=== PATIENT | male | born 1945 | race Caucasian/White ===

== ENCOUNTER 2017-03-04 17:43 | Inpatient (IN) | payer MEDICARE, OTHER ==
[~2017-03-04] VITALS: Ht 167.6 cm; Wt 61.6 kg
--- NOTE | 2017-03-04 17:51 | ERA ---
ER Documentation Chief Complaint Date/Time DATE: 03/04/17 TIME: 17:50 Chief Complaint HPI Very pleasant 71-year-old gentleman history of hypertension and diabetes who has not been taking his medications for greater than 1 month who presents with right-sided facial droop and weakness since about 5:30 AM, 12 hours prior to arrival. The patient states that he was home alone his was out of town and when she returned she noticed that he did not look his usual. He also describes some mild ataxia with walking. He denies any fevers chills chest pain or shortness of breath, no falls or injury. He denies anticoagulant medication. ROS All systems reviewed and are negative except as per history of present illness. Medications Home Meds Reported Medications Metformin* (Glucophage*) 500 Mg Tab, 500 MG PO BID, #90 TAB 03/04/17 Allergies Allergies: Coded Allergies: No Known Allergy (Unverified , 03/04/17) FmHx Family History: diabetes Physical Exam Vitals Vital Signs Date Time Temp Pulse Resp B/P Pulse Ox O2 Delivery O2 Flow Rate FiO2 03/04/17 19:39 98.1 70 18 182/73 100 Room Air Physical Exam General: Well developed, well nourished, no acute distress, obvious slight dysarthria and right-sided facial droop Head: Normocephalic, atraumatic Eyes: Pupils equally reactive, EOM intact ENT: Moist mucous membranes Neck: Supple, no lymphadenopathy Respiratory: Lungs clear bilaterally, no distress Cardiovascular: RRR, no murmurs, rubs, or gallops Abdominal: Soft, non-tender, non-distended, no peritoneal signs : Deferred MSK: No edema, no unilateral swelling, 5/5 strength Neurologic: Alert and oriented, moving all extremities, slightly slurred speech , right-sided facial droop sparing the forehead. No pronator drift in all 4 extremities, normal rapid alternating movements. Steady gait Skin: No rash Psych: Normal mood Result Diagram: 03/04/17182003/04/171820 Results 24 hrs Laboratory Tests Test 03/04/17 18:21 03/04/17 19:15 White Blood Count 7.610^3/ul Red Blood Count 4.5510^6/ul Hemoglobin 14.4g/dl Hematocrit 41.6% Mean Corpuscular Volume 91.4fl Mean Corpuscular Hemoglobin 31.6pg Mean Corpuscular Hemoglobin Concent 34.6g/dl Red Cell Distribution Width 11.6% Platelet Count 86911^3/UL Mean Platelet Volume 9.6fl Neutrophils % 67.3% Lymphocytes % 23.3% Monocytes % 6.7% Eosinophils % 1.2% Basophils % 1.2% Nucleated Red Blood Cells % 0.0/100WBC Neutrophils # 5.110^3/ul Lymphocytes # 1.810^3/ul Monocytes # 0.510^3/ul Eosinophils # 0.110^3/ul Basophils # 0.110^3/ul Nucleated Red Blood Cells # 0.010^3/ul Prothrombin Time 11.8Sec Prothrombin Time Ratio 0.9 INR International Normalized Ratio 0.87 Activated Partial Thromboplast Time 24.4Sec Sodium Level 139mmol/L Potassium Level 3.9mmol/L Chloride Level 101mmol/L Carbon Dioxide Level 27mmol/L Anion Gap 15 Blood Urea Nitrogen 25mg/dl Creatinine 0.96mg/dl Glucose Level 301mg/dl Hemoglobin A1c 8.4% Calcium Level 10.0mg/dl Troponin I < 0.012ng/ml Urine Color LT. YELLOW Urine Clarity CLEAR Urine pH 7.0 Urine Specific [place] 1.015 Urine Ketones NEGATIVE Urine Nitrite NEGATIVE Urine Bilirubin NEGATIVE Urine Urobilinogen 0.2 E.U./dL Urine Leukocyte Esterase NEGATIVE Urine Microscopic RBC 0-2/HPF Urine Microscopic WBC NONE SEEN/HPF Urine Hemoglobin TRACE Urine Glucose >=1000% Urine Total Protein 1+ Urine Opiates Screen NEGATIVE Urine Barbiturates NEGATIVE Urine Amphetamines Screen NEGATIVE Urine Benzodiazepines Screen NEGATIVE Urine Cocaine Screen NEGATIVE Urine Cannabinoids NEGATIVE Current Medications Medications (Trade) Dose Ordered Sig/Kimo Route PRN Reason Start Time Stop Time Status Last Admin Dose Admin Aspirin (Aspirin) 162 mg ONCE ONCE PO 03/04/17 21:30 03/04/17 21:31 DC Ondansetron HCl (Zofran Inj) 4 mg ER BRIDGE PRN IV NAUSEA AND/OR VOMITING 03/04/17 21:30 03/05/17 21:29 Acetaminophen (Tylenol Tab) 650 mg ER BRIDGE PRN PO MILD PAIN/FEVER 03/04/17 21:30 03/05/17 21:29 Procedures/MDM EKG, MONITORS, & DIAGNOSTIC IMAGING: EKG: I reviewed and interpreted a 12-lead EKG. Rhythm: Normal sinus rhythm Ectopy: None Intervals: No abnormalities ST segments: No elevations or depressions T waves: No contiguous inversions Chest x-ray: I reviewed and interpreted a 1 view of the chest Mediastinum: No enlargement Cardiac silhouette: No cardiomegaly Airspace: Clear lung chow bilaterally without evidence of pneumothorax Bones: No evidence of fracture CT brain: No acute intracranial process LAB INTERPRETATION: Hyperglycemia without diabetic ketoacidosis MEDICAL DECISION MAKING: The patient is not a TPA candidate and not a stroke code activation candidate given his timing of greater than 12 hours of symptoms. The risks outweigh the benefits. He is not an interventional candidate. The patient's symptoms are very consistent with likely subacute stroke. The patient has facial droop with forehead sparing, this is not consistent with Justice 's palsy. The patient has a mild stroke but would benefit from inpatient hospitalization, risk stratification. ER COURSE: Aspirin given after negative CT brain. The patient continues to be stable in the emergency department. Permissive hypertension. I kept the patient and/or family informed of laboratory and diagnostic imaging results throughout the emergency room course. DISPOSITION PLAN: Telemetry admission for management of subacute stroke CONSULTATION: Accepting care team and consultations: I discussed the current laboratory data, diagnostic imaging and emergency care provided. Admitting team: Dr. Mercedes Admitting team indication: Insurance directed Departure Diagnosis: Primary Impression: Stroke Qualified Code: I63.9 - Cerebrovascular accident (CVA), unspecified mechanism Additional Impressions: Hyperglycemia Essential hypertension Hypertensive urgency Condition: Stable ATTILA MONET MD March 04, 2017 17:51
[2017-03-04 18:28] LABS: ADD SCAN DIFF NO
[2017-03-04] MEDS ORDERED: METF500T4 PO (18:29)
--- NOTE | 2017-03-04 18:30 | RADRPT ---
PROCEDURE: XR Chest. CLINICAL INDICATION: Cerebrovascular accident. TECHNIQUE: Single frontal view. COMPARISON: None. FINDINGS: The lungs are clear. The heart size is normal. There is calcification in the aorta consistent with atherosclerosis. There is no pleural effusion. There is no pneumothorax. IMPRESSION: 1. Atherosclerosis. 2. Clear lungs. RPTAT: QQ .Timbo Soriano MD, MD Date Time Electronically viewed and signed by .Timbo Soriano MD, MD on 03/04/2017 18:30 .R/
[2017-03-04 18:33] LABS: BASOPHIL # 0.1 10^3/ul (0.0-0.1); BASOPHILS % 1.2 % (0.0-2.0); EOSINOPHILS # 0.1 10^3/ul (0.0-0.5); EOSINOPHILS % 1.2 % (0.0-7.0); HEMATOCRIT 41.6 % (42.0-52.0); HEMOGLOBIN 14.4 g/dl (14.0-18.0); LYMPHOCYTES # 1.8 10^3/ul (0.8-2.9); LYMPHOCYTES % 23.3 % (15.0-51.0); MEAN CORPUSCULAR HEMOGLOBIN 31.6 pg (29.0-33.0); MEAN CORPUSCULAR HGB CONC 34.6 g/dl (32.0-37.0); MEAN CORPUSCULAR VOLUME 91.4 fl (82.0-101.0); MEAN PLATELET VOLUME 9.6 fl (7.4-10.4); MONOCYTE # 0.5 10^3/ul (0.3-0.9); MONOCYTES % 6.7 % (0.0-11.0); NEUTROPHIL # 5.1 10^3/ul (1.6-7.5); NEUTROPHILS % 67.3 % (39.0-77.0); PLATELET COUNT 238 10^3/UL (140-415); RED BLOOD COUNT 4.55 10^6/ul (4.70-6.10); RED CELL DISTRIBUTION WIDTH 11.6 % (11.5-14.5); WHITE BLOOD COUNT 7.6 10^3/ul (4.8-10.8)
[2017-03-04 18:40] LABS: CHLORIDE 101 mmol/L (97-110); POTASSIUM 3.9 mmol/L (3.5-5.1); SODIUM 139 mmol/L (135-144)
[2017-03-04 18:41] LABS: INR 0.87; PROTIME 11.8 Sec (12.2-14.2); PT RATIO 0.9
[2017-03-04 18:42] LABS: CREATININE 0.96 mg/dl (0.61-1.24); PARTIAL THROMBOPLASTIN TIME 24.4 Sec (25.0-35.0)
[2017-03-04 18:43] LABS: ANION GAP 15 (8-16); BLOOD UREA NITROGEN 25 mg/dl (7-20); CARBON DIOXIDE 27 mmol/L (21-31); GLUCOSE 301 mg/dl (70-220)
[2017-03-04 19:00] LABS: TROPONIN-I < 0.012 ng/ml (0.00-0.12)
[2017-03-04 19:31] LABS: ADD UMIC YES; URINE BILIRUBIN (Dip) NEGATIVE (NEGATIVE); URINE BLOOD (Dip) TRACE (NEGATIVE); URINE COLOR LT. YELLOW (YELLOW); URINE GLUCOSE (Dip) >=1000 % (NEGATIVE); URINE KETONES (Dip) NEGATIVE (NEGATIVE); URINE LEUKOCYTE ESTERASE (Dip) NEGATIVE (NEGATIVE); URINE NITRITE (Dip) NEGATIVE (NEGATIVE); URINE TOTAL PROTEIN (Dip) 1+ (NEGATIVE); URINE UROBILINOGEN (Dip) 0.2 E.U./dL (0.1-1.0)
[2017-03-04 19:43] LABS: URINE RBCS 0-2 /HPF (0)
[2017-03-04 19:50] LABS: BARBITURATES NEGATIVE (NEGATIVE); BENZODIAZEPINES NEGATIVE (NEGATIVE); CANNABINOIDS NEGATIVE (NEGATIVE); COCAINE NEGATIVE (NEGATIVE); OPIATES NEGATIVE (NEGATIVE)
--- NOTE | 2017-03-04 21:01 | RADRPT ---
PROCEDURE: Noncontrast CT Head. CLINICAL INDICATION: Weakness TECHNIQUE: Noncontrast CT of the head was obtained. The administered radiation dose was CTDI vol = 45 mGy, DLP = 720 mGy-cm. COMPARISON: No pertinent prior examinations were submitted for comparison. FINDINGS: The ventricles and cortical sulci are moderately enlarged. There is moderate decreased attenuation within the periventricular and subcortical white matter compatible with chronic microvascular change s. There is no acute intracranial hemorrhage or extra-axial fluid collection. There is no mass effect . No midline shift is identified. There is no loss of lagos-white differentiation to suggest acute in farction. The orbits are within normal limits. The paranasal sinuses are well aerated. No destructive osseous lesion is identified. IMPRESSION: No acute findings. Moderate diffuse parenchymal volume loss and chronic microvascular changes. RPTAT: HIKT .Oren Cook MD, Date Time Electronically viewed and signed by .Oren Cook MD, on 03/04/2017 21:01 .T/
[2017-03-04] MEDS ORDERED: ASPIRIN 81 MG TAB PO ONE (21:30)
[2017-03-04] MEDS ORDERED: ONDANSETRON 4 MG INJ IV PRN (21:30)
[2017-03-04] MEDS ORDERED: ACETAMINOPHEN 325 MG TAB PO PRN (21:30)
[2017-03-04 23:00] VITALS: Ht 167.6 cm; Wt 61.6 kg
[2017-03-04 23:17] VITALS: TEMP 98.1
[2017-03-04 23:37] VITALS: PULSE 72
[2017-03-04 23:46] VITALS: PULSE 72
[2017-03-05] VITALS (14 sets, daily range): BP systolic 125–220; BP diastolic 73–98; PULSE 63–131; RESP 18–20
[2017-03-05] MEDS ORDERED: GLUCOSE GEL 15 GRAM TUBE PO PRN ×2 (01:00)
[2017-03-05] MEDS ORDERED: GLUCOSE GEL 15 GRAM TUBE BUCCAL PRN (01:00)
[2017-03-05] MEDS ORDERED: DEXTROSE 50% 50 ML SYRINGE IV PRN ×2 (01:00)
[2017-03-05] MEDS ORDERED: GLUCAGON 1 MG INJ IM PRN (01:00)
[2017-03-05] MEDS: INSULIN ASPART [NOVOLOG] 3 ML PEN SC SCH ×5 (01:46→20:48)
[2017-03-05] MEDS: INSULIN GLARGINE [LANtus] 3 ML PEN SC SCH ×2 (01:48→20:49)
[2017-03-05] MEDS: SOD CHLORIDE 0.9% 1,000 ML IV SCH ×2 (01:50→12:00)
[2017-03-05] MEDS: ATORVASTATIN 40 MG TAB PO SCH ×2 (01:50→20:42)
[2017-03-05] MEDS: ACCU-CHEK XX SCH (02:00)
[2017-03-05] MEDS: hydrALAzine 20 MG INJ IV PRN (04:01)
[2017-03-05 06:15] LABS: ADD SCAN DIFF NO
[2017-03-05 06:20] LABS: BASOPHIL # 0.1 10^3/ul (0.0-0.1); BASOPHILS % 1.3 % (0.0-2.0); EOSINOPHILS # 0.3 10^3/ul (0.0-0.5); EOSINOPHILS % 2.9 % (0.0-7.0); HEMATOCRIT 40.2 % (42.0-52.0); LYMPHOCYTES # 1.9 10^3/ul (0.8-2.9); LYMPHOCYTES % 21.3 % (15.0-51.0); MEAN CORPUSCULAR HEMOGLOBIN 31.9 pg (29.0-33.0); MEAN CORPUSCULAR HGB CONC 34.8 g/dl (32.0-37.0); MEAN CORPUSCULAR VOLUME 91.6 fl (82.0-101.0); MEAN PLATELET VOLUME 9.8 fl (7.4-10.4); MONOCYTE # 0.9 10^3/ul (0.3-0.9); MONOCYTES % 9.7 % (0.0-11.0); NEUTROPHIL # 5.8 10^3/ul (1.6-7.5); NEUTROPHILS % 64.6 % (39.0-77.0); PLATELET COUNT 227 10^3/UL (140-415); RED BLOOD COUNT 4.39 10^6/ul (4.70-6.10); RED CELL DISTRIBUTION WIDTH 11.5 % (11.5-14.5); WHITE BLOOD COUNT 8.9 10^3/ul (4.8-10.8)
--- NOTE | 2017-03-05 06:27 | HP ---
DATE OF ADMISSION: 03/04/2017 TIME SEEN: 2300. CHIEF COMPLAINT: Facial droop and difficulty with balance. HISTORY OF PRESENT ILLNESS: The patient is a 71-year-old male with a history of type 2 diabetes and hypertension, who presented to the emergency department complaining of right facial droop, unsteady gait, and right-sided weakness. Symptoms started this morning, but the patient did not seek help t he whole day. When his came home she noticed the facial droop and the patient also had some sl urred speech, as well as having difficulty with his balance when he was walking and as such, he was brought to the ER for evaluation. Denied any headache, double vision, seizure-like activity, chest pain, shortness of breath, fever, chills, nausea, vomiting. The patient has not taken his medicatio n for over a month. When he presented to the ER his blood pressure was 182/73, heart rate 70, respiratory rate 18, tempe rature 98.1, oxygen saturation 100% on room air. Laboratory shows a glucose of 301 and BUN 25, othe rwise CBC and BMP were within normal limits. His first troponin is negative. His hemoglobin A1c is 8.4. Brain CT without contrast shows moderate diffuse parenchymal volume loss and chronic microvas cular change, otherwise no acute infarct, mass effect, or midline shift. He was given aspirin, Zofr an and Tylenol and currently admitted to the telemetry unit. REVIEW OF SYSTEMS: A 12-point review of systems was performed and negative except as mentioned in t he HPI. PAST MEDICAL HISTORY: As per HPI. PAST SURGICAL HISTORY: Denies. SOCIAL HISTORY: He is an ex-smoker, but he quit several decades ago. Drinks alcohol occasionally. No history of illicit drug use. ALLERGIES: NO KNOWN DRUG ALLERGIES. HOME MEDICATIONS: Metformin, as well as an unknown antihypertensive. PHYSICAL EXAMINATION: VITAL SIGNS: Blood pressure 183/84, heart rate 73, respiratory rate 16, temperature 98.1, oxygen sa turation 100% on room air. GENERAL: No acute distress. He does have some slurred speech, as well as difficulty finding words at times. HEENT: No obvious head deformity. There is a right-sided facial droop noted. Extraocular muscles intact. Pupils are reactive to light. No scleral icterus. CARDIOVASCULAR: Regular rate and rhythm, with no extra sounds. LUNGS: Clear. ABDOMEN: Soft, nontender, nondistended. Positive bowel sounds. EXTREMITIES: No edema. NEUROLOGIC: No focal weakness. He actually has 5/5 strength in both upper and lower extremities. Sensation intact. There is a right-sided facial droop. No tongue deviation. No diplopia. LABORATORY DATA: Pertinent positives as mentioned in the HPI. IMAGING: Brain CT with results as mentioned in the HPI, and chest x-ray shows atherosclerosis. Oth erwise clear lungs, with no pleural effusion and no pneumothorax. IMPRESSION: 1. Acute cerebrovascular accident. 2. Hypertensive urgency. 3. Diabetes with hyperglycemia, hemoglobin A1c 8.4. PLAN: Continue telemetry monitoring. When the patient presented to the ER he already significantly passed the window for TPA, so he was not even considered for the treatment. He did receive aspirin . I will continue aspirin and also start him on a statin. Will not treat his blood pressure unless it is greater than 220/120 for 24 hours from symptom onset. A1c is 8.4. Will check a fasting lipi d panel and he will be placed on subcutaneous heparin for DVT prophylaxis. Will obtain MRI of the b rain, carotid Doppler ultrasound, 2D echo and place a neurology consult. He will be evaluated by a physical therapist and will have a formal swallow evaluation. Further workup and management will be per clinical course. Dictated By: DM KIRKLAND/LUCA Conf#: [id number] DID#: [id number]
[2017-03-05 07:01] LABS: ALBUMIN 3.9 g/dl (3.3-4.9); ALBUMIN/GLOBULIN RATIO 1.3; BILIRUBIN,INDIRECT 0.5 mg/dl (0-1.1); BILIRUBIN,TOTAL 0.5 mg/dl (0.2-1.3); CALCIUM 9.6 mg/dl (8.4-10.2); CREATININE 0.79 mg/dl (0.61-1.24); MAGNESIUM 1.9 mg/dl (1.7-2.5); PHOSPHORUS 3.3 mg/dl (2.5-4.9); POTASSIUM 3.9 mmol/L (3.5-5.1); TOTAL PROTEIN 6.9 g/dl (6.1-8.1)
[2017-03-05] MEDS: ASPIRIN 81 MG TAB PO SCH (08:37)
[2017-03-05] MEDS: HEPARIN 5,000 UNIT/0.5 ML VIAL SC SCH ×2 (08:38→20:49)
--- NOTE | 2017-03-05 12:11 | RADRPT ---
PROCEDURE: Carotid ultrasound CLINICAL INDICATION: Stroke, carotid bruits TECHNIQUE: Hu scale, color doppler, spectral doppler ultrasound of the bilateral carotid and flaco tebral arteries. This study indirectly references the measurement of the distal ICA diameter as the denominator for s tenosis measurement. Validated velocity measurements with angiographic measurements, velocity criter ia are extrapolated from diameter data as defined by: *Cartoid artery stenosis: hu-scale and Doppl er US diagnosis. Society of Radiologists in Ultrasound Consensus Conference. Radiology 2003; 229: 34 0-346. SRU Consensus Conference Criteria for the Diagnosis of Carotid Artery Stenosis* Degree of Stenosis, % ICA PSV, cm/sec Plaque Estimate, % ICA/CCA PSV Ratio Normal <125 None <2.0 <50 <125 <50 <2.0 50 69 125-230 >50 2.0-4.0 >70 but less than near occlusion >230 >50 <4.0 Near occlusion High, low, or undetectable Visible Variable Total occlusion Undetectable Visible, no detectable lumen Not applicable COMPARISON: No prior studies are available for comparison. FINDINGS: Location Right CCA69 cm/sec Prox ICA 74 cm/sec Mid ICA74 cm/sec Dist ICA82 cm/sec ECA93 cm/sec ICA/CCA1.2 Left CCA80 cm/sec Prox ICA 60 cm/sec Mid ICA70 cm/sec Dist ICA57 cm/sec PIR806 cm/sec ICA/CCA0.9 Plaque burden: Calcified plaques are present within the bilateral internal carotid arteries, right g reater than left. Antegrade flow is seen within the vertebral arteries bilaterally. IMPRESSION: Calcified plaque involving both internal carotid arteries, right greater than left, without evidence of flow acceleration to suggest that these are hemodynamically significant; less than 50% stenosis bilaterally. RPTAT: AADD .Dong Soler MD, Date Time Electronically viewed and signed by .Dong Soler MD, MD on 03/05/2017 12:11 .B/
--- NOTE | 2017-03-05 15:34 | PN ---
Date/Time of Note Date/Time of Note DATE: 03/05/17 TIME: 15:30 Assessment/Plan VTE Prophylaxis VTE Prophylaxis Intervention: SCD's Lines/Catheters IV [facility] Peripheral IV Urinary Cath still in place: No Assessment/Plan Chief Complaint/Hosp Course Assessment and plan 1. Acute CVA. MRI of the brain is pending. Will get neurology's consultation. Continue on aspirin and statin medication. 2. Hypertensive urgency. Will allow for passive hypertension due to recent diagnosis of CVA. Will provide with antihypertensives for systolic greater than 220. 3. Diabetes. A1c noted at 8.4. Continue insulin regimen. Will adjust as needed Disposition plan: MRI of the brain is pending. Await neurology input. Continue inpatient monitoring. Discussed plan of care with Problems: Subjective 24 Hr Interval Summary Free Text/Dictation Patient noted with right facial droop. No other notable weakness in bilateral upper or lower extremities. Exam/Review of Systems Vital Signs Vitals Vital Signs Date Time Temp Pulse Resp B/P Pulse Ox O2 Delivery O2 Flow Rate FiO2 03/05/17 12:18 77 03/05/17 11:42 98.2 20 174/81 98 03/04/17 23:17 Room Air Exam Constitutional: alert, oriented Psych: nl mood/affect Head: other (Right facial droop) Neck: No jvd Respiratory: clear to auscultation, normal air movement Cardiovascular: regular rate and rhythm Gastrointestinal: non-tender, soft Musculoskeletal: nl extremities to inspection Neurological: ACCOUNTS ADJUSTABLE CLERK II-XII intact, nl mental status, other (Right facial droop tongue deviated to the left) Skin: nl turgor Results Result Diagram: 03/05/17 0536 03/05/17 0536 Results 24 hrs Laboratory Tests Test 03/04/17 18:21 03/04/17 19:15 03/05/17 01:40 03/05/17 05:36 White Blood Count 7.6 8.9 Red Blood Count 4.55 L 4.39 L Hemoglobin 14.4 14.0 Hematocrit 41.6 L 40.2 L Mean Corpuscular Volume 91.4 91.6 Mean Corpuscular Hemoglobin 31.6 31.9 Mean Corpuscular Hemoglobin Concent 34.6 34.8 Red Cell Distribution Width 11.6 11.5 Platelet Count 238 227 Mean Platelet Volume 9.6 9.8 Neutrophils % 67.3 64.6 Lymphocytes % 23.3 21.3 Monocytes % 6.7 9.7 Eosinophils % 1.2 2.9 Basophils % 1.2 1.3 Nucleated Red Blood Cells % 0.0 0.0 Neutrophils # 5.1 5.8 Lymphocytes # 1.8 1.9 Monocytes # 0.5 0.9 Eosinophils # 0.1 0.3 Basophils # 0.1 0.1 Nucleated Red Blood Cells # 0.0 0.0 Prothrombin Time 11.8 L Prothrombin Time Ratio 0.9 INR International Normalized Ratio 0.87 Activated Partial Thromboplast Time 24.4 L Sodium Level 139 137 Potassium Level 3.9 3.9 Chloride Level 101 107 Carbon Dioxide Level 27 25 Anion Gap 15 9 # Blood Urea Nitrogen 25 H 23 H Creatinine 0.96 0.79 Glucose Level 301 H 143 # Hemoglobin A1c 8.4 H 8.3 H Calcium Level 10.0 9.6 Troponin I < 0.012 Urine Color LT. YELLOW Urine Clarity CLEAR Urine pH 7.0 Urine Specific [place] 1.015 Urine Ketones NEGATIVE Urine Nitrite NEGATIVE Urine Bilirubin NEGATIVE Urine Urobilinogen 0.2 E.U./dL Urine Leukocyte Esterase NEGATIVE Urine Microscopic RBC 0-2 Urine Microscopic WBC NONE SEEN Urine Hemoglobin TRACE Urine Glucose >=1000 Urine Total Protein 1+ H Urine Opiates Screen NEGATIVE Urine Barbiturates NEGATIVE Urine Amphetamines Screen NEGATIVE Urine Benzodiazepines Screen NEGATIVE Urine Cocaine Screen NEGATIVE Urine Cannabinoids NEGATIVE Bedside Glucose 285 H Phosphorus Level 3.3 Magnesium Level 1.9 Total Bilirubin 0.5 Direct Bilirubin 0.00 Indirect Bilirubin 0.5 Aspartate Amino Transf (AST/SGOT) 24 Alanine Aminotransferase (ALT/SGPT) 37 Alkaline Phosphatase 59 Total Protein 6.9 Albumin 3.9 Globulin 3.00 Albumin/Globulin Ratio 1.30 Triglycerides Level 84 Cholesterol Level 254 H LDL Cholesterol, Calculated 174 HDL Cholesterol 63 Cholesterol/HDL Ratio 4.0 Test 03/05/17 08:01 03/05/17 12:00 Bedside Glucose 91 235 H Medications Medications Current Medications Insulin Glargine (Lantus) 15 unit HS SC Last administered on 03/05/17t 01:48; Admin Dose 15 UNIT; Start 03/05/17 at 01:00 Diagnostic Test (Pha) (Accu-Chek) 1 ea 02 XX ; Start 03/05/17 at 02:00 Aspirin (Aspirin) 81 mg DAILY PO Last administered on 03/05/17 08:37; Admin Dose 81 MG; Start 03/05/17 at 09:00 Miscellaneous Information 1 ea NOTE XX ; Start 03/05/17 at 01:00 Glucose (Glutose) 15 gm Q15M PRN PO DECREASED GLUCOSE; Start 03/05/17 at 01:00 Glucose (Glutose) 22.5 gm Q15M PRN PO DECREASED GLUCOSE; Start 03/05/17 at 01: 00 Dextrose (D50w Syringe) 25 ml Q15M PRN IV DECREASED GLUCOSE; Start 03/05/17 at 01:00 Dextrose (D50w Syringe) 50 ml Q15M PRN IV DECREASED GLUCOSE; Start 03/05/17 at 01:00 Glucagon (Glucagen) 1 mg Q15M PRN IM DECREASED GLUCOSE; Start 03/05/17 at 01:00 Glucose (Glutose) 15 gm Q15M PRN BUCCAL DECREASED GLUCOSE; Start 03/05/17 at 01 :00 Hydralazine HCl (Apresoline) 10 mg Q4H PRN IV ELEVATED BLOOD PRESSURE Last administered on 03/05/17 04:01; Admin Dose 10 MG; Start 03/05/17 at 01:30; Stop 03/06/17 at 01:29 Atorvastatin Calcium (Lipitor) 40 mg HS PO Last administered on 03/05/17 01:50 ; Admin Dose 40 MG; Start 03/05/17 at 01:30 Heparin Sodium (Porcine) (Heparin (5000 Units/0.5 ml)) 5,000 unit BID SC Last administered on 03/05/17 08:38; Admin Dose 5,000 UNIT; Start 03/05/17 at 09:00 KRISTIN RICHMOND March 05, 2017 15:34
--- NOTE | 2017-03-05 17:38 | RADRPT ---
Echocardiogram Report Patient Name: MURTAZA WHITE Gender: Male Date: 1945 Study Date: 05-Mar-2017 Auto Heater Mechanic: Jaime MORALES [facility] Location: 507 Ref. Physician: DM RAINES Quality: Adequate Procedures: Transthoracic echocardiogram with complete 2D, M-Mode, and doppler examination. Indications: Stroke. 2D/M Mode Doppler Measurement Value Normal Ranges Measurement Value Normal Ranges LVIDd 2D 3.4 3.5 - 5.6 cm AV Peak Fareed 0.9 m/sec LVIDs 2D 2.7 2.1 - 4.1 cm AV Peak PG 3.3 mmHg LVPWd 2D 0.9 0.6 - 1.1 cm LVOT Peak Fareed 0.7 m/sec IVSd 2D 0.9 0.6 - 1.1 cm LVOT Peak PG 2.2 mmHg AoR Diam 2D 2.4 2.0 - 3.7 cm MV E Peak Fareed 0.5 m/sec EDV 2D 47.3 cm3 MV A Peak Fareed 0.8 m/sec ESV 2D 19.7 cm3 MV E/A 0.6 LA Dimen 2D 2.7 2.3 - 4.0 cm MV Decel Time 367 msec MV Decel [place] 1 MV E/A 0.6 Findings Left Ventricle: Normal left ventricular systolic function. Normal left ventricular cavity size. Normal left ventricular wall thickness. Ejection fraction is visually estimated at 55 %. Tissue Doppler/Mitral Doppler indices are consistent with impaired relaxation (Stage I diastolic dysfunction). Right Ventricle: Normal right ventricular size. Normal right ventricular systolic function. Left Atrium: The left atrium is normal in size. Right Atrium: The right atrium is normal in size. Mitral Valve: Mitral valve leaflets appear mildly thickened. Mild mitral leaflet calcification. Trace mitral regurgitation. Aortic Valve: No significant aortic stenosis or insufficiency. Aortic cusps appear mildly calcified. Tricuspid Valve: Tricuspid valve not well visualized. There is trace tricuspid regurgitation. Pericardium: Normal pericardium with no significant pericardial effusion. Aorta: Normal aortic root. IVC: Normal size and normal respiratory collapse consistent with normal right atrial pressure. Conclusions 1.Normal left ventricular systolic function. Normal left ventricular cavity size. Normal left ventricular wall thickness. Ejection fraction is visually estimated at 55 %. Tissue Doppler/Mitral Doppler indices are consistent with impaired relaxation (Stage I diastolic dysfunction). 2.The left atrium is normal in size. 3.Mitral valve leaflets appear mildly thickened. Mild mitral leaflet calcification. Trace mitral regurgitation. 4.No significant aortic stenosis or insufficiency. Aortic cusps appear mildly calcified. 5.Tricuspid valve not well visualized. There is trace tricuspid regurgitation. Electronically Signed By: Azael Ochoa 05-Mar-2017 17:37:58 -0700 Patient Name: MURTAZA WHITE Study Date: 05-Mar-2017 [id number]
--- NOTE | 2017-03-05 23:46 | CONS ---
DATE OF ADMISSION: 03/04/2017 DATE OF CONSULTATION: 03/05/2017 TYPE OF CONSULTATION: Neurology. Thank you very much for this interesting consultation for evaluation of stroke. HISTORY OF PRESENT ILLNESS: The patient is a 71-year-old gentleman with past medical history of eliane betes, hypertension who presented with acute onset of slurred speech, right-sided weakness, and unst eadiness of gait. He stated that about 3 months ago he ran out of his medications for diabetes and hypertension and did not refill them. Overall, he is feeling a little bit better. His speech has i mproved, though he has problems with swallowing, at times choking on liquids. Weakness is also bett er. He is ambulating with his . CURRENT MEDICATIONS: 1. Aspirin. 2. Heparin for DVT prevention. 3. Lipitor 40 mg. 4. Insulin sliding scale. ALLERGIES: NONE. SOCIAL HISTORY: No alcohol, tobacco, drug use. History of smoking remotely 18 years ago. FAMILY HISTORY: Noncontributory. REVIEW OF SYSTEMS: All pertinent positives included in the above history of present illness. PHYSICAL EXAMINATION: VITAL SIGNS: Today 97.5 temperature, 75 pulse, 18 respirations, 189/88, blood pressure. GENERAL: Not in acute distress, lying in bed. HEENT: Normocephalic, atraumatic head. NECK: No carotid bruits. No thyromegaly. LUNGS: Clear to auscultation bilaterally. CARDIAC: Normal cardiac rhythm and sounds. ABDOMEN: Soft, nontender. EXTREMITIES: No cyanosis, clubbing, or edema. NEUROLOGIC: He is awake, alert, and oriented x3 with fluent speech. Cranial nerve examination show s intact visual chow bilaterally. Pupils reactive from 3 to 2 mm bilaterally. Extraocular moveme nts intact without nystagmus. No definite facial weakness noticed. Normal sensation on the face. Tongue is in midline. Motor strength examination shows normal strength in all extremities on manual strength testing. Trace of pronator drift on the right. Sensory examination grossly intact to lig ht touch and pain. Deep tendon reflexes 2+ upper extremities and knees, absent ankle jerks. Downgo ing toes bilaterally. Coordination preserved on itmwhw-br-[id number] testing. No dysmetria or tremor. Gait was not assessed. IMAGING: The patient had CAT scan of the head, which did not show any acute abnormality. MRI of th e brain is pending. He had EKG showing sinus rhythm. Echocardiogram was done already, ejection fra ction of 55. LABORATORY DATA: The patient's labs show essentially normal CBC. Hemoglobin A1c 8.3. BUN 23, crea tinine 0.79. Rest of comprehensive metabolic panel within normal limits. Troponins negative. Chol esterol 254, LDL 174. IMPRESSION: Acute ischemic stroke in patient with history of diabetes, hypertension who was not com pliant with medications for the last several months. The patient is already 2 days after acute episode of stroke, so gradually please obtain blood pressu re control. Keep patient euglycemic. Continue Lipitor and aspirin. I will request evaluation of h is swallowing abilities with speech therapy and change his diet to mechanically soft in the meantime . Physical therapy evaluation was requested already. Thank you very much for this interesting consultation. Dictated By: SALOME FINNEY MD YV/NTS Conf#: [id number] DID#: [id number] CC: DM RAINES MD;*EndCC*
[2017-03-06] VITALS (16 sets, daily range): BP systolic 114–195; BP diastolic 56–92; PULSE 61–151; RESP 16–18
[2017-03-06] MEDS: hydrALAzine 20 MG INJ IV PRN (01:21)
[2017-03-06] MEDS: ACCU-CHEK XX SCH (01:28)
[2017-03-06 07:46] LABS: ADD SCAN DIFF NO
[2017-03-06 07:50] LABS: BASOPHIL # 0.1 10^3/ul (0.0-0.1); BASOPHILS % 1.3 % (0.0-2.0); EOSINOPHILS # 0.2 10^3/ul (0.0-0.5); EOSINOPHILS % 1.9 % (0.0-7.0); HEMOGLOBIN 14.7 g/dl (14.0-18.0); LYMPHOCYTES # 1.9 10^3/ul (0.8-2.9); LYMPHOCYTES % 19.6 % (15.0-51.0); MEAN CORPUSCULAR HEMOGLOBIN 31.9 pg (29.0-33.0); MEAN CORPUSCULAR VOLUME 91.1 fl (82.0-101.0); MEAN PLATELET VOLUME 9.9 fl (7.4-10.4); MONOCYTE # 0.7 10^3/ul (0.3-0.9); MONOCYTES % 7.8 % (0.0-11.0); NEUTROPHIL # 6.6 10^3/ul (1.6-7.5); NEUTROPHILS % 69.2 % (39.0-77.0); PLATELET COUNT 241 10^3/UL (140-415); RED BLOOD COUNT 4.61 10^6/ul (4.70-6.10); RED CELL DISTRIBUTION WIDTH 11.5 % (11.5-14.5); WHITE BLOOD COUNT 9.5 10^3/ul (4.8-10.8)
[2017-03-06] MEDS: INSULIN ASPART [NOVOLOG] 3 ML PEN SC SCH ×6 (07:55→21:11)
[2017-03-06 08:01] LABS: POTASSIUM 3.2 mmol/L (3.5-5.1)
[2017-03-06 08:04] LABS: CALCIUM 9.4 mg/dl (8.4-10.2); CREATININE 0.82 mg/dl (0.61-1.24)
[2017-03-06] MEDS: ASPIRIN 81 MG TAB PO SCH (09:36)
[2017-03-06] MEDS: LISINOPRIL 20 MG TAB PO SCH (09:36)
[2017-03-06] MEDS: HEPARIN 5,000 UNIT/0.5 ML VIAL SC SCH ×2 (09:46→21:11)
[2017-03-06] MEDS ORDERED: POTASSIUM CHLORIDE (SR) 20 MEQ TAB PO STA (10:23)
[2017-03-06] MEDS ORDERED: LISI20TA11 PO (10:29)
[2017-03-06] MEDS ORDERED: LINA5TAB PO (10:29)
[2017-03-06] MEDS ORDERED: METF1000 PO (10:29)
[2017-03-06] MEDS ORDERED: ATOR40TA68 PO (10:29)
[2017-03-06] MEDS ORDERED: AMLO2.5T78 PO (10:29)
[2017-03-06] MEDS ORDERED: ASPI81TA3 PO (10:29)
[2017-03-06] MEDS: AMLODIPINE 5 MG TAB PO SCH ×2 (12:15→21:21)
--- NOTE | 2017-03-06 14:55 | PN ---
Date/Time of Note Date/Time of Note DATE: 03/06/17 TIME: 14:53 Assessment/Plan VTE Prophylaxis VTE Prophylaxis Intervention: heparin Lines/Catheters IV [facility] Saline Lock Urinary Cath still in place: No Assessment/Plan Chief Complaint/Hosp Course Assessment and plan 1. Acute CVA. MRI of the brain is pending. Continue on aspirin and statin medication. continue with neurologist recommendations 2. Hypertensive urgency. Will allow for passive hypertension due to recent diagnosis of CVA. Will provide with antihypertensives for systolic greater than 220. 3. Diabetes. A1c noted at 8.4. Continue insulin regimen. Will adjust as needed Disposition plan: MRI of the brain is pending. continue with neurology recs. d/ c when cleared by consultants Discussed plan of care with Problems: Subjective 24 Hr Interval Summary Free Text/Dictation no s/s of distress. Exam/Review of Systems Vital Signs Vitals Vital Signs Date Time Temp Pulse Resp B/P Pulse Ox O2 Delivery O2 Flow Rate FiO2 03/06/17 12:23 88 03/06/17 11:04 97.9 16 146/70 98 03/04/17 23:17 Room Air Intake and Output 03/05/17 03/05/17 03/06/17 15:00 23:00 07:00 Intake Total 1720 ml 700 ml Balance 1720 ml 700 ml Exam Constitutional: alert, oriented Psych: nl mood/affect Head: normocephalic Eyes: nl conjunctiva Neck: supple, No jvd Respiratory: clear to auscultation, normal air movement Cardiovascular: regular rate and rhythm Gastrointestinal: non-tender, soft Musculoskeletal: nl extremities to inspection Extremities: normal pulses Neurological: nl mental status, other (with right facial droop and left sided tongue deviation ) Results Result Diagram: 03/06/17 0635 03/06/17 0635 Results 24 hrs Laboratory Tests Test 03/05/17 17:06 03/05/17 20:44 03/06/17 01:27 03/06/17 06:35 Bedside Glucose 210 194 159 White Blood Count 9.5 Red Blood Count 4.61 L Hemoglobin 14.7 Hematocrit 42.0 Mean Corpuscular Volume 91.1 Mean Corpuscular Hemoglobin 31.9 Mean Corpuscular Hemoglobin Concent 35.0 Red Cell Distribution Width 11.5 Platelet Count 241 Mean Platelet Volume 9.9 Neutrophils % 69.2 Lymphocytes % 19.6 Monocytes % 7.8 Eosinophils % 1.9 Basophils % 1.3 Nucleated Red Blood Cells % 0.0 Neutrophils # 6.6 Lymphocytes # 1.9 Monocytes # 0.7 Eosinophils # 0.2 Basophils # 0.1 Nucleated Red Blood Cells # 0.0 Sodium Level 137 Potassium Level 3.2 L Chloride Level 101 Carbon Dioxide Level 23 Anion Gap 16 # Blood Urea Nitrogen 26 H Creatinine 0.82 Glucose Level 160 Calcium Level 9.4 Test 03/06/17 08:02 03/06/17 12:19 Bedside Glucose 182 159 Medications Medications Current Medications Diagnostic Test (Pha) (Accu-Chek) 1 ea 02 XX Last administered on 03/06/17 01: 28; Admin Dose 1 EA; Start 03/05/17 at 02:00 Aspirin (Aspirin) 81 mg DAILY PO Last administered on 03/06/17 09:36; Admin Dose 81 MG; Start 03/05/17 at 09:00 Miscellaneous Information 1 ea NOTE XX ; Start 03/05/17 at 01:00 Glucose (Glutose) 15 gm Q15M PRN PO DECREASED GLUCOSE; Start 03/05/17 at 01:00 Glucose (Glutose) 22.5 gm Q15M PRN PO DECREASED GLUCOSE; Start 03/05/17 at 01: 00 Dextrose (D50w Syringe) 25 ml Q15M PRN IV DECREASED GLUCOSE; Start 03/05/17 at 01:00 Dextrose (D50w Syringe) 50 ml Q15M PRN IV DECREASED GLUCOSE; Start 03/05/17 at 01:00 Glucagon (Glucagen) 1 mg Q15M PRN IM DECREASED GLUCOSE; Start 03/05/17 at 01:00 Glucose (Glutose) 15 gm Q15M PRN BUCCAL DECREASED GLUCOSE; Start 03/05/17 at 01 :00 Hydralazine HCl (Apresoline) 10 mg Q4H PRN IV ELEVATED BLOOD PRESSURE Last administered on 03/06/17 01:21; Admin Dose 10 MG; Start 03/05/17 at 01:30 Atorvastatin Calcium (Lipitor) 40 mg HS PO Last administered on 03/05/17 20:42 ; Admin Dose 40 MG; Start 03/05/17 at 01:30 Heparin Sodium (Porcine) (Heparin (5000 Units/0.5 ml)) 5,000 unit BID SC Last administered on 03/06/17 09:46; Admin Dose 5,000 UNIT; Start 03/05/17 at 09:00 Lisinopril (Zestril) 20 mg DAILY PO Last administered on 03/06/17 09:36; Admin Dose 20 MG; Start 03/06/17 at 09:00 Insulin Glargine (Lantus) 20 unit HS SC ; Start 03/06/17 at 21:00 Amlodipine Besylate (Norvasc) 5 mg BID PO Last administered on 03/06/17 12:15 ; Admin Dose 5 MG; Start 03/06/17 at 10:30 KRISTIN RICHMOND March 06, 2017 14:55
--- NOTE | 2017-03-06 20:34 | RADRPT ---
PROCEDURE: MRI Brain without contrast. CLINICAL INDICATION: Stroke, acute neurological deficit. TECHNIQUE: An MRI of the brain was performed utilizing the following sequences: Sagittal and axial T1 weighted, axial T2 weighted, axial diffusion weighted with ADC mapping, coronal GRE, and axial F LAIR. COMPARISON: Brain CT 03/04/2017. FINDINGS: There is 1.3 cm focal restricted diffusion in the left shaikh radiata consistent with acute/recent i nfarct. No hypointense signal abnormalities are seen on the GRE images to suggest the presence of b lood degradation products. There is no evidence of intracranial hemorrhage, mass effect, or midline shift. No extra-axial fluid collections are seen. The ventricles and sulci are moderately enlarged indicative of volume loss. There are moderate foci of T2 FLAIR hyperintensity in the periventricular, deep, and subcortical whi te matter and helga, which are nonspecific in etiology but likely reflect chronic small vessel ischem ic changes. Small old lacunar infarcts are noted in bilateral shaikh radiata and lentiform nuclei. No abnormal intracranial vascular flow void is noted. The visualized paranasal sinuses demonstrate s cattered mild mucosal thickening. IMPRESSION: 1. A 1.3 cm focal acute/recent nipple in the left shaikh radiata. 2. Moderate chronic small vessel ischemic changes. 3. Small old lacunar infarcts in bilateral shaikh radiata and lentiform nuclei. 4. Moderate generalized cerebral volume loss. A call report was made and above findings were discussed and acknowledged by patient's nurse JULIA hale on 03/06/2017 8:30 PM to relay to responsible physician. RPTAT: HH .Kelsey Gabriel MD, MD Date Time Electronically viewed and signed by .Kelsey Gabriel MD, MD on 03/06/2017 20:34 .N/
[2017-03-06] MEDS ORDERED: INSULIN GLARGINE [LANtus] 3 ML PEN SC SCH (21:00)
[2017-03-06] MEDS: ATORVASTATIN 40 MG TAB PO SCH (21:09)
[2017-03-07] VITALS (9 sets, daily range): BP systolic 121–131; BP diastolic 56–66; PULSE 58–71; RESP 18–19
[2017-03-07] MEDS: ACCU-CHEK XX SCH (01:48)
[2017-03-07 07:24] LABS: ADD SCAN DIFF NO
[2017-03-07 07:44] LABS: BASOPHIL # 0.1 10^3/ul (0.0-0.1); EOSINOPHILS # 0.1 10^3/ul (0.0-0.5); EOSINOPHILS % 1.8 % (0.0-7.0); HEMATOCRIT 38.8 % (42.0-52.0); HEMOGLOBIN 13.9 g/dl (14.0-18.0); LYMPHOCYTES # 1.8 10^3/ul (0.8-2.9); LYMPHOCYTES % 22.9 % (15.0-51.0); MEAN CORPUSCULAR HEMOGLOBIN 32.5 pg (29.0-33.0); MEAN CORPUSCULAR HGB CONC 35.8 g/dl (32.0-37.0); MEAN CORPUSCULAR VOLUME 90.7 fl (82.0-101.0); MEAN PLATELET VOLUME 9.8 fl (7.4-10.4); MONOCYTE # 0.7 10^3/ul (0.3-0.9); MONOCYTES % 8.8 % (0.0-11.0); NEUTROPHIL # 5.2 10^3/ul (1.6-7.5); NEUTROPHILS % 65.1 % (39.0-77.0); PLATELET COUNT 249 10^3/UL (140-415); RED BLOOD COUNT 4.28 10^6/ul (4.70-6.10); RED CELL DISTRIBUTION WIDTH 11.4 % (11.5-14.5); WHITE BLOOD COUNT 7.9 10^3/ul (4.8-10.8)
[2017-03-07] MEDS: INSULIN ASPART [NOVOLOG] 3 ML PEN SC SCH ×6 (07:55→18:50)
[2017-03-07 08:24] LABS: POTASSIUM 3.5 mmol/L (3.5-5.1)
[2017-03-07 08:26] LABS: CREATININE 0.93 mg/dl (0.61-1.24)
[2017-03-07 08:27] LABS: CALCIUM 9.4 mg/dl (8.4-10.2)
[2017-03-07] MEDS: LISINOPRIL 20 MG TAB PO SCH (08:53)
[2017-03-07] MEDS: ASPIRIN 81 MG TAB PO SCH (08:53)
[2017-03-07] MEDS: AMLODIPINE 5 MG TAB PO SCH (08:54)
[2017-03-07] MEDS: HEPARIN 5,000 UNIT/0.5 ML VIAL SC SCH (08:58)
--- NOTE | 2017-03-07 16:02 | PDOCDIS ---
Discharge Instructions DIAGNOSIS Discharge Diagnosis: 1. Acute CVA 2. Hypertensive urgency 2. Diabetes CONDITION Patient Condition: Stable HOME CARE INSTRUCTIONS: Special Diet: CARB CONTROLL FOLLOW UP/APPOINTMENTS Appointments 1. Follow up with Dr. Vince Gill in one week OTHER ORDERS: Other Orders: 1. Take your medications as prescribed KRISTIN RICHMOND March 07, 2017 16:02
== END 2017-03-07 19:15 | disposition home or self-care (01) | DRG 65 ==
LOC: E/R 17:43 → TEL 21:20
PROVIDERS: ADMIT Internal Medicine; ATTEND Internal Medicine
DX: I63.9 Cerebral infarction, unspecified (principal); G81.91 Hemiplegia, unspecified affecting right dominant side; E11.65 Type 2 diabetes mellitus with hyperglycemia; R29.810 Facial weakness; R26.0 Ataxic gait; R47.1 Dysarthria and anarthria; I10 Essential (primary) hypertension; I16.0 Hypertensive urgency; Z79.4 Long term (current) use of insulin
CPT/HCPCS: 70450; 70551; 71010; 80048; 80053; 80061; 80307; 81001; 81003; 82962; 83036; 83735; 84100; 84484; 85025; 85610; 85730; 92522; 92610; 93005; 93306; 93880; 97162; J0360; J1644; J1815; J7030